=== PATIENT | female | born 1945 | race Caucasian/White ===

== ENCOUNTER → 2024-01-24 16:06 | Outpatient (REF) | payer MEDICARE, OTHER, SELFPAY | LOC: RAD 16:06 | PROVIDERS: ATTENDING PHYSICIAN Otolaryngology; FAMILY PHYSICIAN Physician Assistant Medical | DX: R51.9 Headache, unspecified (principal) | CPT/HCPCS: 70486 ==

== ENCOUNTER → 2024-03-23 09:07 | Outpatient (REF) | payer MEDICARE, OTHER, SELFPAY | LOC: RCS 09:07 | PROVIDERS: ATTENDING PHYSICIAN Internal Medicine Cardiovascular Disease; FAMILY PHYSICIAN Physician Assistant Medical | DX: I10 Essential (primary) hypertension (principal); R41.89 Other symptoms and signs involving cognitive functions and awareness; R42 Dizziness and giddiness; R00.2 Palpitations | CPT/HCPCS: 93225; 93226 ==

== ENCOUNTER → 2024-04-07 10:08 | Outpatient (REF) | payer MEDICARE, OTHER, SELFPAY | LOC: RCS 10:08 | PROVIDERS: ATTENDING PHYSICIAN Internal Medicine Cardiovascular Disease; FAMILY PHYSICIAN Physician Assistant Medical | DX: I10 Essential (primary) hypertension (principal); R42 Dizziness and giddiness; R00.2 Palpitations; R41.89 Other symptoms and signs involving cognitive functions and awareness | CPT/HCPCS: 93306 ==

== ENCOUNTER → 2024-06-03 15:00 | Outpatient (REF) | payer MEDICARE, OTHER, SELFPAY | LOC: WDC 15:00 | PROVIDERS: ATTENDING PHYSICIAN Physician Assistant Medical | DX: E11.9 Type 2 diabetes mellitus without complications (principal); Z12.31 Encounter for screening mammogram for malignant neoplasm of breast; K21.9 Gastro-esophageal reflux disease without esophagitis; Z00.00 Encounter for general adult medical examination without abnormal findings; Z87.891 Personal history of nicotine dependence; Z68.33 Body mass index [BMI] 33.0-33.9, adult; Z01.818 Encounter for other preprocedural examination; H25.9 Unspecified age-related cataract; Z78.0 Asymptomatic menopausal state | CPT/HCPCS: 77063; 77067; 77080 ==

== ENCOUNTER → 2025-02-15 06:36 | Outpatient (REF) | payer MEDICARE, OTHER, SELFPAY | LOC: RAD 06:36 | PROVIDERS: ATTENDING PHYSICIAN Physician Assistant Medical | DX: E11.9 Type 2 diabetes mellitus without complications (principal); Z87.891 Personal history of nicotine dependence | CPT/HCPCS: 76770 ==

== ENCOUNTER 2025-02-18 06:11 | Day surgery (SDC) | payer MEDICARE, OTHER, SELFPAY ==
[2025-02-18 09:16] LABS: Glucose - Point of Care 106 mg/dl (70-99)
== END 2025-02-18 11:14 | disposition home or self-care (01) ==
LOC: GI 06:11
PROVIDERS: ATTENDING PHYSICIAN Internal Medicine
DX: R19.7 Diarrhea, unspecified (principal); R63.4 Abnormal weight loss; R10.13 Epigastric pain; D12.3 Benign neoplasm of transverse colon; K62.1 Rectal polyp; K31.A0 Gastric intestinal metaplasia, unspecified
CPT/HCPCS: 45385; 45380; 43239; 88305; 82962; 88342

== ENCOUNTER → 2025-05-10 13:56 | Outpatient (REF) | payer MEDICARE, OTHER, SELFPAY | LOC: PAVMRI 13:56 | PROVIDERS: ATTENDING PHYSICIAN Orthopaedic Surgery; FAMILY PHYSICIAN Physician Assistant Medical | DX: M25.552 Pain in left hip (principal); M16.12 Unilateral primary osteoarthritis, left hip | CPT/HCPCS: 73721 ==